=== PATIENT | female | born 1955 | race Two or more races ===

== ENCOUNTER → 2024-04-26 | Outpatient (CLI) | payer OTHER, SELFPAY | END | disposition home or self-care (01) | LOC: SWHD 10:18 | PROVIDERS: PCP Physician Assistant; Referring Provider Physician Assistant; Visit Provider Student in an Organized Health Care Education/Training Program | DX: S71.101A Unspecified open wound, right thigh, initial encounter (principal); X58.XXXA Exposure to other specified factors, initial encounter; E11.69 Type 2 diabetes mellitus with other specified complication; Z79.84 Long term (current) use of oral hypoglycemic drugs; N18.6 End stage renal disease | CPT/HCPCS: 97597; A9270 ==

== ENCOUNTER → 2024-05-10 | Outpatient (CLI) | payer OTHER, SELFPAY | END | disposition home or self-care (01) | LOC: SWHD 10:21 | PROVIDERS: PCP Physician Assistant; Referring Provider Physician Assistant; Visit Provider Student in an Organized Health Care Education/Training Program | DX: S71.101A Unspecified open wound, right thigh, initial encounter (principal); X58.XXXA Exposure to other specified factors, initial encounter; E11.69 Type 2 diabetes mellitus with other specified complication; Z79.84 Long term (current) use of oral hypoglycemic drugs; N18.6 End stage renal disease | CPT/HCPCS: 97597; 97598 ×5; A9270 ==

== ENCOUNTER → 2024-06-24 | Outpatient (CLI) | payer MEDICARE, SELFPAY | END | disposition home or self-care (01) | LOC: SWHD 09:08 | PROVIDERS: Visit Provider Surgery | DX: S71.101A Unspecified open wound, right thigh, initial encounter (principal); X58.XXXA Exposure to other specified factors, initial encounter; E11.69 Type 2 diabetes mellitus with other specified complication; Z79.84 Long term (current) use of oral hypoglycemic drugs; N18.6 End stage renal disease | CPT/HCPCS: 11042; 11045 ×3; 99213; A9270; G0463 ==

== ENCOUNTER → 2024-07-06 | Outpatient (CLI) | payer MEDICARE, SELFPAY | END | disposition home or self-care (01) | PROVIDERS: Visit Provider Student in an Organized Health Care Education/Training Program | DX: S71.101A Unspecified open wound, right thigh, initial encounter (principal); X58.XXXA Exposure to other specified factors, initial encounter; E11.69 Type 2 diabetes mellitus with other specified complication; Z79.84 Long term (current) use of oral hypoglycemic drugs; N18.6 End stage renal disease | CPT/HCPCS: 97597; 97598 ×3; A9270 ==

== ENCOUNTER → 2024-07-20 | Outpatient (CLI) | payer MEDICARE, SELFPAY | END | disposition home or self-care (01) | LOC: SWHD 10:25 | PROVIDERS: PCP Physician Assistant; Referring Provider Physician Assistant; Visit Provider Student in an Organized Health Care Education/Training Program | DX: T81.89XA Other complications of procedures, not elsewhere classified, initial encounter (principal); E11.622 Type 2 diabetes mellitus with other skin ulcer; Z79.4 Long term (current) use of insulin; Z99.2 Dependence on renal dialysis; E03.9 Hypothyroidism, unspecified; I50.9 Heart failure, unspecified; R60.0 Localized edema; D64.9 Anemia, unspecified; N28.89 Other specified disorders of kidney and ureter | CPT/HCPCS: 11042; 11045 ×3; A9270 ==

== ENCOUNTER → 2024-08-03 | Outpatient (CLI) | payer MEDICARE, SELFPAY | END | disposition home or self-care (01) | LOC: SWHD 10:22 | PROVIDERS: PCP Physician Assistant; Referring Provider Physician Assistant; Visit Provider Student in an Organized Health Care Education/Training Program | DX: T81.89XA Other complications of procedures, not elsewhere classified, initial encounter (principal); E11.621 Type 2 diabetes mellitus with foot ulcer; Z79.4 Long term (current) use of insulin; Z99.2 Dependence on renal dialysis; E03.9 Hypothyroidism, unspecified; I50.9 Heart failure, unspecified; R60.0 Localized edema; D64.9 Anemia, unspecified; N28.89 Other specified disorders of kidney and ureter | CPT/HCPCS: 11042; 11045 ×4; A9270 ==

== ENCOUNTER → 2024-08-17 | Outpatient (CLI) | payer MEDICARE, SELFPAY | END | disposition home or self-care (01) | LOC: SWHD 10:27 | PROVIDERS: Visit Provider Student in an Organized Health Care Education/Training Program | DX: T81.89XA Other complications of procedures, not elsewhere classified, initial encounter (principal); E11.621 Type 2 diabetes mellitus with foot ulcer; Z79.4 Long term (current) use of insulin; Z99.2 Dependence on renal dialysis; E03.9 Hypothyroidism, unspecified; I50.9 Heart failure, unspecified; R60.0 Localized edema; D64.9 Anemia, unspecified; N28.89 Other specified disorders of kidney and ureter | CPT/HCPCS: 97597; A9270 ==

== ENCOUNTER → 2024-09-07 | Outpatient (CLI) | payer MEDICARE, MEDICAID, SELFPAY | END | disposition home or self-care (01) | PROVIDERS: Visit Provider Student in an Organized Health Care Education/Training Program | DX: T81.89XA Other complications of procedures, not elsewhere classified, initial encounter (principal); Z79.4 Long term (current) use of insulin; Z99.2 Dependence on renal dialysis; E03.9 Hypothyroidism, unspecified; I50.9 Heart failure, unspecified; R60.0 Localized edema; D64.9 Anemia, unspecified; N28.89 Other specified disorders of kidney and ureter | CPT/HCPCS: 97597; 97598 ×2; A9270 ==

== ENCOUNTER → 2024-09-28 | Outpatient (CLI) | payer MEDICARE, MEDICAID, SELFPAY | END | disposition home or self-care (01) | LOC: SWHD 10:25 | PROVIDERS: Visit Provider Surgery | DX: T81.89XA Other complications of procedures, not elsewhere classified, initial encounter (principal); Z79.4 Long term (current) use of insulin; Z99.2 Dependence on renal dialysis; E03.9 Hypothyroidism, unspecified; I50.9 Heart failure, unspecified; R60.0 Localized edema; D64.9 Anemia, unspecified; N28.89 Other specified disorders of kidney and ureter | CPT/HCPCS: 97597; 97598; A9270 ==

== ENCOUNTER → 2024-10-19 | Outpatient (CLI) | payer MEDICARE, MEDICAID, SELFPAY | END | disposition home or self-care (01) | LOC: SWHD 10:17 | PROVIDERS: Visit Provider Student in an Organized Health Care Education/Training Program | DX: T81.89XA Other complications of procedures, not elsewhere classified, initial encounter (principal); Z79.4 Long term (current) use of insulin; Z99.2 Dependence on renal dialysis; E03.9 Hypothyroidism, unspecified; I50.9 Heart failure, unspecified; R60.0 Localized edema; D64.9 Anemia, unspecified; N28.89 Other specified disorders of kidney and ureter | CPT/HCPCS: 97597; 97598 ×2; A9270 ==

== ENCOUNTER → 2024-11-16 | Outpatient (CLI) | payer MEDICARE, MEDICAID, SELFPAY | END | disposition home or self-care (01) | LOC: SWHD 10:16 | PROVIDERS: Visit Provider Student in an Organized Health Care Education/Training Program | DX: T81.89XA Other complications of procedures, not elsewhere classified, initial encounter (principal); S71.102A Unspecified open wound, left thigh, initial encounter; X58.XXXA Exposure to other specified factors, initial encounter; I73.9 Peripheral vascular disease, unspecified; E03.9 Hypothyroidism, unspecified; I50.9 Heart failure, unspecified; R60.0 Localized edema; D64.9 Anemia, unspecified; N28.89 Other specified disorders of kidney and ureter; Z99.2 Dependence on renal dialysis; Z79.4 Long term (current) use of insulin | CPT/HCPCS: 97597; 97598 ×2; A9270 ==

== ENCOUNTER → 2024-12-14 | Outpatient (CLI) | payer MEDICARE, MEDICAID, SELFPAY | END | disposition home or self-care (01) | LOC: SWHD 10:21 | PROVIDERS: Visit Provider Student in an Organized Health Care Education/Training Program | DX: T81.89XA Other complications of procedures, not elsewhere classified, initial encounter (principal); S71.102A Unspecified open wound, left thigh, initial encounter; X58.XXXA Exposure to other specified factors, initial encounter; I73.9 Peripheral vascular disease, unspecified; E03.9 Hypothyroidism, unspecified; I50.9 Heart failure, unspecified; R60.0 Localized edema; D64.9 Anemia, unspecified; N28.89 Other specified disorders of kidney and ureter; Z99.2 Dependence on renal dialysis; Z79.4 Long term (current) use of insulin | CPT/HCPCS: 97597; 97598 ×2; A9270 ==

== ENCOUNTER → 2025-01-11 | Outpatient (CLI) | payer MEDICARE, MEDICAID, SELFPAY | END | disposition home or self-care (01) | LOC: SWHD 10:26 | PROVIDERS: Visit Provider Student in an Organized Health Care Education/Training Program | DX: T81.89XA Other complications of procedures, not elsewhere classified, initial encounter (principal); S71.102A Unspecified open wound, left thigh, initial encounter; X58.XXXA Exposure to other specified factors, initial encounter; I73.9 Peripheral vascular disease, unspecified; E03.9 Hypothyroidism, unspecified; I50.9 Heart failure, unspecified; R60.0 Localized edema; D64.9 Anemia, unspecified; N28.89 Other specified disorders of kidney and ureter; Z79.4 Long term (current) use of insulin; Z99.2 Dependence on renal dialysis | CPT/HCPCS: 97597; 97598; A9270 ==

== ENCOUNTER → 2025-02-08 | Outpatient (CLI) | payer MEDICARE, MEDICAID, SELFPAY | END | disposition home or self-care (01) | LOC: SWHD 10:24 | PROVIDERS: Visit Provider Student in an Organized Health Care Education/Training Program | DX: T81.89XA Other complications of procedures, not elsewhere classified, initial encounter (principal); S71.102A Unspecified open wound, left thigh, initial encounter; X58.XXXA Exposure to other specified factors, initial encounter; I73.9 Peripheral vascular disease, unspecified; E03.9 Hypothyroidism, unspecified; I50.9 Heart failure, unspecified; R60.0 Localized edema; D64.9 Anemia, unspecified; N28.89 Other specified disorders of kidney and ureter; Z79.4 Long term (current) use of insulin; Z99.2 Dependence on renal dialysis | CPT/HCPCS: 97597; 97598; A9270 ==

== ENCOUNTER → 2025-03-15 | Outpatient (CLI) | payer MEDICARE, MEDICAID, SELFPAY | END | disposition home or self-care (01) | LOC: SWHD 03-21 08:17 | PROVIDERS: Visit Provider Student in an Organized Health Care Education/Training Program | DX: I87.332 Chronic venous hypertension (idiopathic) with ulcer and inflammation of left lower extremity (principal); T81.89XA Other complications of procedures, not elsewhere classified, initial encounter; S71.102A Unspecified open wound, left thigh, initial encounter; I95.9 Hypotension, unspecified; N18.6 End stage renal disease; Z99.2 Dependence on renal dialysis; Z79.4 Long term (current) use of insulin; E11.69 Type 2 diabetes mellitus with other specified complication; I73.9 Peripheral vascular disease, unspecified | CPT/HCPCS: 99213; G0463 ==

== ENCOUNTER → 2025-04-19 | Outpatient (CLI) | payer MEDICARE, MEDICAID, SELFPAY | END | disposition home or self-care (01) | LOC: SWHD 10:13 | PROVIDERS: Visit Provider Student in an Organized Health Care Education/Training Program | DX: I87.332 Chronic venous hypertension (idiopathic) with ulcer and inflammation of left lower extremity (principal); T81.89XA Other complications of procedures, not elsewhere classified, initial encounter; S71.102A Unspecified open wound, left thigh, initial encounter; X58.XXXA Exposure to other specified factors, initial encounter; L97.129 Non-pressure chronic ulcer of left thigh with unspecified severity; I95.9 Hypotension, unspecified; N18.6 End stage renal disease; Z99.2 Dependence on renal dialysis; Z79.4 Long term (current) use of insulin; E11.69 Type 2 diabetes mellitus with other specified complication; I73.9 Peripheral vascular disease, unspecified | CPT/HCPCS: 97597; A9270 ==

== ENCOUNTER → 2025-05-23 | Outpatient (CLI) | payer MEDICARE, MEDICAID, SELFPAY | END | disposition home or self-care (01) | PROVIDERS: PCP Physician Assistant; Referring Provider Physician Assistant; Visit Provider Student in an Organized Health Care Education/Training Program | DX: I87.332 Chronic venous hypertension (idiopathic) with ulcer and inflammation of left lower extremity (principal); T81.89XA Other complications of procedures, not elsewhere classified, initial encounter; S71.102A Unspecified open wound, left thigh, initial encounter; X58.XXXA Exposure to other specified factors, initial encounter; L97.122 Non-pressure chronic ulcer of left thigh with fat layer exposed; I95.9 Hypotension, unspecified; N18.6 End stage renal disease; Z99.2 Dependence on renal dialysis; Z79.4 Long term (current) use of insulin; E11.69 Type 2 diabetes mellitus with other specified complication; I73.9 Peripheral vascular disease, unspecified | CPT/HCPCS: 11042; 11045; A9270 ==

== ENCOUNTER → 2025-05-23 | Outpatient (CLI) | payer MEDICARE, MEDICAID, SELFPAY | END | disposition home or self-care (01) | PROVIDERS: Referring Provider Student in an Organized Health Care Education/Training Program; Visit Provider Student in an Organized Health Care Education/Training Program | DX: E11.622 Type 2 diabetes mellitus with other skin ulcer (principal) | CPT/HCPCS: 87070; 87075; 87077; 87186; 87205 ==